=== PATIENT | female | born 1995 | race Two or more races ===

== ENCOUNTER 2023-07-02 09:33 | Emergency (ER) | payer OTHER ==
[~2023-07-02] VITALS: Ht 170.2 cm; Wt 69.4 kg
[2023-07-02] MEDS ORDERED: FAMOTIDINE/PF 20 MG in 0.9 % SODIUM CHLORIDE 8 ML IV PUSH STA (09:56)
[2023-07-02] MEDS ORDERED: 0.9 % SODIUM CHLORIDE 1,000 ML IV SCH (10:00)
[2023-07-02] MEDS ORDERED: METRONIDAZOLE/SODIUM CHLORIDE 500 MG/100 ML PIGGYBACK IV ONE (10:00)
[2023-07-02] MEDS ORDERED: ONDANSETRON HCL 2 MG/ML VIAL IV ONE (10:00)
[2023-07-02 10:45] LABS: HEMATOCRIT 38.4 % (36.0-45.00); HEMOGLOBIN 12.8 g/dL (12.0-15.00); MEAN CORPUSCULAR HEMOGLOBIN 29.4 pg (27.00-32.0); MEAN CORPUSCULAR HGB CONC 33.4 g/dl (32.0-36.0); PLATELET COUNT 198 K/uL (150-450); RED BLOOD COUNT 4.36 M/uL (4.00-6.00)
[2023-07-02 11:01] LABS: ALBUMIN 3.6 gm/dL (3.4-5.0); BILIRUBIN TOTAL 0.29 mg/dL (0.3-1.2); CALCIUM 8.2 mg/dL (8.5-10.1); CREATININE SERUM 0.76 mg/dL (0.55-1.02); GFR 90.62; GLOBULINA 3.5 G/DL (2.4-3.5); POTASSIUM 4.03 mEq/L (3.5-5.1); TOTAL PROTEIN 7.1 gm/dL (6.4-8.2)
== END 2023-07-02 14:34 | disposition home or self-care (01) ==
LOC: ER 09:33
PROVIDERS: General Practice
DX: R19.7 Diarrhea, unspecified (principal); Z91.013 Allergy to seafood

== ENCOUNTER 2024-07-20 13:27 | Emergency (ER) | payer OTHER ==
[~2024-07-20] VITALS: Ht 170.2 cm; Wt 68.9 kg
[2024-07-20] MEDS ORDERED: TAMSULOSIN HCL 0.4 MG CAP PO ONE ×2 (14:15→14:48)
[2024-07-20] MEDS ORDERED: PHENAZOPYRIDINE HCL 100 MG TABLET PO ONE ×2 (14:15→14:48)
[2024-07-20] MEDS ORDERED: CEFTRIAXONE SODIUM 1,000 MG VIAL IM ONE (14:15)
[2024-07-20] MEDS ORDERED: CEFTRIAXONE SODIUM 1,000 MG VIAL ONE (14:48)
[2024-07-20 15:36] LABS: HEMATOCRIT 38.3 % (36.0-45.00); HEMOGLOBIN 12.7 g/dL (12.0-15.00); MEAN CORPUSCULAR HEMOGLOBIN 29.5 pg (27.00-32.0); MEAN CORPUSCULAR HGB CONC 33.1 g/dl (32.0-36.0); PLATELET COUNT 199 K/uL (150-450); RED CELL DISTRIBUTION WIDTH 13.1 % (11.5-14.5)
[2024-07-20 15:54] LABS: ALBUMIN 4.3 gm/dL (3.4-5.0); BILIRUBIN TOTAL 0.44 mg/dL (0.3-1.2); CALCIUM 9.6 mg/dL (8.5-10.1); CREATININE SERUM 0.9 mg/dL (0.55-1.02); GFR 74.02; GLOBULINA 3.2 G/DL (2.4-3.5); POTASSIUM 4.37 mEq/L (3.5-5.1); TOTAL PROTEIN 7.5 gm/dL (6.4-8.2)
[2024-07-20 15:59] LABS: URINE APPEARANCE Clear; URINE BILIRRUBIN Negative (NEGATIVE); URINE BLOOD Negative; URINE COLOR Orange; URINE GLUCOSE Negative (NEGATIVE); URINE KETONE Negative (NEGATIVE); URINE LEUKOCYTE Small; URINE NITRATE Positive; URINE PROTEIN Negative (NEGATIVE)
[2024-07-20 16:03] LABS: URINE BACTERIA 178.6 uL (0.0-1933); URINE EPITHELIAL CELLS 23.2 uL (0.0-38.8); URINE RBC 39.1 uL (0.0-20.8); URINE WBC 7.9 uL (0.0-23.2)
== END 2024-07-20 16:55 | disposition home or self-care (01) ==
LOC: ER 13:28
PROVIDERS: General Practice
DX: N39.0 Urinary tract infection, site not specified (principal); N39.9 Disorder of urinary system, unspecified; Z91.013 Allergy to seafood